=== PATIENT | female | born 1985 | race Caucasian/White ===

== ENCOUNTER 2019-09-17 06:47 | Emergency (ER) | payer BC, SELFPAY ==
[2019-09-17 06:51] VITALS: BP 109/44; PULSE 125; RESP 18; TEMP 37.1; O2SAT 91; BMI 44.9
--- NOTE | 2019-09-17 06:58 | XR_ITS ---
WS: [id number] Portable AP upright chest, 09/17/2019 Clinical Data: cough/congestion Comparison: PA and lateral chest, 08/07/2018. Findings: No nodules, masses or effusions are seen. The heart is normal. The pulmonary vascularity is not increased. No pneumonia or pneumothorax is seen. XR/XR chest 1V portable [id number] Impression: Negative chest.
--- NOTE | 2019-09-17 07:02 | W.ED.GENADLT ---
HPI - General Adult General: Chief complaint: General Medical Stated complaint: CONGESTION Time Seen by Provider: 09/17/19 06:54 Source: patient Mode of arrival: ambulatory Limitations: no limitations History of Present Illness: HPI narrative: Patient is a 33-year-old female who presents to ED today with complaints of fever of 101, chills, body aches, cough, pain in her chest with coughing, and generalized malaise that began last night; she states several members of her family have been sick with a stomach flu ; she denies abdominal pain, nausea, vomiting, or diarrhea Onset (ago): hour(s) Pain Consistency: constant Relieving factors: none Exacerbating factors: none Associated symptoms: Reports chest pain (with coughing) and malaise; Deny dyspnea, headache(s), nausea, rash, palpitations, syncope or vomiting Review of Systems Const: Reports: fever, chills, body aches, fatigue and malaise Eyes: Denies: change in vision or blurry vision ENMT: Denies: enlarged tonsils or painful swallowing Card: Reports: chest pain (with coughing); Denies: palpitations, irregular heart rhythm, lightheadedness, syncope, pre-syncope or shortness of breath on exertion Resp: Denies: shortness of breath, productive cough or pain on inspiration GI: Denies: abdominal pain, nausea, vomiting, heartburn/indigestion or diarrhea : Denies: difficulty urinating, painful urination, urinary frequency or urinary urgency Musc: Denies: neck pain, back pain or joint pain Skin/Breast: Denies: rash Neuro: Denies: headache PFSH ED PFSH: Statuses (acute, chronic, etc) shown below reflect problem list status as previously entered and may not be historically accurate Social History Smoking and tobacco status: never smoked Female Reproductive History: Date of last menstrual period: 09/16/19 Physical Exam Const: COMMON NORMALS: no apparent distress, oriented x3, no limitations, alert and well nourished NUTRITIONAL APPEARANCE: obese HENMT: COMMON NORMALS: normocephalic, head/scalp atraumatic, EAC's normal and TM's normal bilaterally HEAD & SCALP: normocephalic and atraumatic FACE & SINUS: normal facial exam EXTERNAL AUDITORY CANAL: EAC's normal TYMPANIC MEMBRANE: TM's normal bilaterally THROAT: posterior oropharynx normal, tonsils normal and uvula midline Eye: COMMON NORMALS: PERRL and EOMs intact bilaterally PUPIL: Yes PERRL Neck/C-Spine: COMMON NORMALS: full ROM, no lymphadenopathy, supple and no meningeal signs Chest: COMMONS NORMALS: inspection of chest normal Resp: COMMON NORMALS: normal respiratory effort and clear to auscultation bilaterally AUSCULTATION: clear to auscultation bilaterally Cardio: COMMON NORMALS: regular rate and regular rhythm RATE: regular rate RHYTHM: regular rhythm GI: COMMON NORMALS: normal to inspection, nondistended, normoactive bowel sounds, soft to palpation, non-tender, no hepatosplenomegaly and no masses PALPATION: Yes soft and Yes no hepatosplenomegaly : COMMON NORMALS: Yes no CVA tenderness BLADDER/KIDNEY EXAM: Yes no CVA tenderness Back/Pelvis: COMMON NORMALS: no CVA tenderness and thoracic and lumbar spine normal to inspection Extremity: COMMON NORMALS: normal to inspection Neuro: COMMON NORMALS: oriented x3 SENSORIUM/ORIENTATION: Yes alert MENINGEAL SIGNS: Yes no meningeal signs Skin: COMMON NORMALS: no rashes or lesions noted GENERAL SKIN EXAM: no rashes or lesions noted Course Vital Signs: Vital signs: Vital Signs Temperature 98.6 F 09/17/19 08:24 Pulse Rate 108 H 09/17/19 08:24 Respiratory Rate 18 09/17/19 08:24 Blood Pressure 135/80 09/17/19 08:24 Pulse Oximetry 98 09/17/19 08:24 MDM - General Adult Lab Data: Labs: Lab Results 09/17/19 Range/Units 07:03 Influenza Type A A g Negative (Negative) POC Influenza B Ag Positive H (Negative) Imaging Data^: CXR: My impression: [address] [address] XRay Report Signed Patient: Nandini Brown Unit #: [id number] : 1985 Age/Sex: 33 / F ADM Date: 09/17/19 Loc: ER Room/Bed: Attending Dr: Ordering Provider/Ordering MD: Jocelyn Bonner Date of Service: 09/17/19 Procedure(s): XR chest 1V portable [id number] Accession Number(s): [id number] Report Number: [id number] WS: [id number] Portable AP upright chest, 09/17/2019 Clinical Data: cough/congestion Comparison: PA and lateral chest, 08/07/2018. Findings: No nodules, masses or effusions are seen. The heart is normal. The pulmonary vascularity is not increased. No pneumonia or pneumothorax is seen. XR/XR chest 1V portable [id number] Impression: Negative chest. Dictated By: Bailee Hicks MD Signed By: Bailee Hicks MD Signed Date/Time: 09/17/19823 DD/ 2 Discharge Plan Discharge Patient Disposition: Home, Self-Care Clinical Impression: Influenza Condition: Stable Prescriptions: New Tamiflu 75 mg capsule 75 mg PO BID 5 Days Qty: 10 RF: 0 Discharge Orders: Discharge Order (Routine); Ordered 09/17/19 Ordered By: Jocelyn Bonner Referrals: Belkis Menjivar FNP [Primary Care Provider] - Discharge Diet: Usual diet Discharge Activity: Resume usual activity Patient Instructions: Influenza (ED) Stand Alone Forms: Work/School Release Discharge Date/Time: 09/17/19 08:26 Coding Level of Care Code ED Public Accountant for Chg Fwd Exam Problem Focused
[2019-09-17 07:05] VITALS: BP 93/69; PULSE 112; RESP 22; O2SAT 96
[2019-09-17] MEDS: sodium chloride 0.9% 1,000 ML 999 ML IV (07:25)
[2019-09-17 07:41] LABS: Influenza A by IFA Negative (Negative); Influenza B by IFA Positive (Negative)
[2019-09-17 08:24] VITALS: BP 135/80; PULSE 108; RESP 18; TEMP 37; O2SAT 98
== END 2019-09-17 08:26 | disposition home or self-care (01) ==
PROVIDERS: Emergency Provider Physician Assistant; Family Provider Nurse Practitioner; PCP Nurse Practitioner
DX: J11.1 Influenza due to unidentified influenza virus with other respiratory manifestations (principal)
CPT/HCPCS: 71045; 87804; 96360; 99282; 99284; J7030

== ENCOUNTER → 2020-02-24 11:15 | Outpatient (BNVA) | payer BC, SELFPAY | PROVIDERS: Family Provider Nurse Practitioner; PCP Nurse Practitioner; Visit Provider Family Medicine | DX: E11.9 Type 2 diabetes mellitus without complications (principal); E78.5 Hyperlipidemia, unspecified; L68.0 Hirsutism | CPT/HCPCS: 80053; 80061; 83036; 85025 ==

== ENCOUNTER → 2020-06-26 08:38 | Outpatient (BNVA) | payer BC, SELFPAY | PROVIDERS: Family Provider Nurse Practitioner; PCP Nurse Practitioner; Visit Provider Family Medicine | DX: E11.9 Type 2 diabetes mellitus without complications (principal); E78.5 Hyperlipidemia, unspecified; L68.0 Hirsutism; M54.42 Lumbago with sciatica, left side; Z01.419 Encounter for gynecological examination (general) (routine) without abnormal findings; F17.219 Nicotine dependence, cigarettes, with unspecified nicotine-induced disorders | CPT/HCPCS: 80053; 83036; 88175 ==

== ENCOUNTER 2020-07-12 14:58 | Emergency (ER) | payer BC, SELFPAY ==
[2020-07-12 15:17] VITALS: BP 123/85; PULSE 91; RESP 18; TEMP 36.3; O2SAT 96; BMI 45.8
--- NOTE | 2020-07-12 16:12 | W.ED.EYEPROB ---
Documented by User: MARGO Reynolds 07/13/20 07:12 HPI - Eye Problem General: Chief complaint: Eye Problems Stated complaint: spider bite L eye Time Seen by Provider: 07/12/20 16:07 Source: patient Mode of arrival: ambulatory Limitations: no limitations History of Present Illness: HPI Narrative: 34-year-old female patient presents to the emergency department with 3-day history of pain and redness/swelling to the left eye. States woke on Friday from sleep, left upper eyelid with swelling and redness. She reports visit to her primary care office on Friday, placed on Bactrim. She reports was told possible spider bite. She had follow-up with her java security architect today, Dr. Goodwin who advised there is nothing wrong with her eye but the infection was limited to the eyelid and to the face. Patient reports was advised to come to the emergency department if she developed worsening symptoms -she reports continues to take Bactrim, reports facial swelling and edema now down the left cheek advancing to the neck. She reports intense itching. States has not taken anything for itching or pain. She denies loss of vision, reports photophobia, Onset (ago): day(s) (3) Onset description: gradual Duration: constant and progressively worsening Location: left eye Eye Symptoms: decreased vision (Due to left eyelid edema) and photophobia Place: home Mechanism: other (Unknown) Severity: moderate If Pain, Quality: burning Associated symptoms: Reports no associated symptoms; Denies fever(s), headache(s), nausea or vomiting Treatments Prior to Arrival: other (Oral antibiotics) Review of Systems General: Reports: 10 or more systems reviewed and unremarkable except in HPI and below Const: Denies: fever(s), chills, fatigue, malaise or diaphoresis Eyes: Reports: change in vision (left eyelid edema); Denies: blurry vision or eye redness ENMT: Denies: throat pain, hoarseness, dental pain, disequilibrium, nasal discharge, nasal congestion or epistaxis Card: Denies: chest pain, palpitations, irregular heart rhythm, swelling of feet/ankles or dyspnea on exertion Resp: Denies: dyspnea, productive cough, non-productive cough, wheezing or chest congestion GI: Denies: abdominal pain, nausea or vomiting : Denies: difficulty voiding or dysuria Musc: Denies: back pain Skin/Breast: Denies: rash or pruritus Neuro: Denies: headache(s), weakness in extremities or behavioral changes Psych: Denies: anxiety or depression Anthony/Lymph: Denies: easy bruising PFSH ED PFSH: Medical History Dyslipidemia Female hirsutism Seasonal allergies Type 2 diabetes mellitus, without long-term current use of insulin Surgical History H/O tubal ligation History of cholecystectomy History of tympanostomy tube placement Family History Other CAD (coronary artery disease) Diabetes Hypertension Stroke Social History Smoking and tobacco status: current every day smoker cigarettes Packs smoked per day: 0.25 Female Reproductive History: Date of last menstrual period: 09/16/19 Physical Exam Const: COMMON NORMALS: no acute distress, patient oriented x3, healthy appearing, alert and well nourished GENERAL APPEARANCE: cooperative, comfortable, well kempt and well hydrated NUTRITIONAL APPEARANCE: obese ORIENTATION/CONSCIOUSNESS: Yes awake, Yes oriented to person, Yes oriented to place and Yes oriented to time HENMT: COMMON NORMALS: normocephalic, atraumatic, EAC's normal, TM's normal bilaterally, Normal external nose present and moist oral mucous membranes HEAD & SCALP: normocephalic and atraumatic FACE & SINUS: sinuses nontender, erythema on the left and edema on the left; no sinus tenderness, no ecchymosis, no Facial tenderness on exam of face and sinuses and no TMJ findings NOSE: Normal external nose present; mucous membranes&turbinates not abnormal and no Nasal discharge present EXTERNAL AUDITORY CANAL: EAC's normal TYMPANIC MEMBRANE: TM's normal bilaterally MOUTH: Normal oral and palatal mucosa present; no TMJ findings THROAT: posterior oropharynx normal Eye: COMMON NORMALS: Equal, round and reactive pupils present, EOMs intact bilaterally and conjunctivae normal (To visual inspection) ALIGNMENT: Yes alignment normal PERIORBITAL: periorbital findings abnormal positive left periorbital swelling, periorbital tenderness and periorbital erythema EYELID: eyelid abnormality (Erythema and edema) left upper eyelid and left lower eyelid CONJUNCTIVA: Yes conjunctivae normal (To visual inspection) SCLERA: sclerae normal (To visual inspection) PUPIL: Yes Equal, round and reactive pupils present, Yes pupil size - right Right pupil size (mm): 5 and Yes pupil size - left Left pupil size (mm): 5 Neck/C-Spine: COMMON NORMALS: full ROM and no lymphadenopathy GENERAL: Yes trachea midline, No lymphadenopathy, No tracheal deviation, No submandibular swelling and Yes other (Erythema to the left face with tracking to the left neck, lateral) CERVICAL SPINE: Yes cervical ROM normal Lymph: LYMPHATIC: no lymphadenopathy noted and No lymphadenopathy Chest: COMMONS NORMALS: normal inspection of the chest Resp: COMMON NORMALS: normal respiratory effort and clear to auscultation bilaterally AUSCULTATION: clear to auscultation bilaterally Cardio: COMMON NORMALS: regular rhythm, S1 normal heart sound present, S2 normal heart sound present and Peripheral pulses 2+ throughout RHYTHM: regular rhythm HEART SOUNDS: S1 normal heart sound present and S2 normal heart sound present PERIPHERAL PULSES: Peripheral pulses 2+ throughout GI: COMMON NORMALS: Soft to palpation and non-tender INSPECTION: Yes normal to inspection PALPATION: Yes Soft to palpation : COMMON NORMALS: Yes no CVA tenderness BLADDER/KIDNEY EXAM: Yes no CVA tenderness Back/Pelvis: COMMON NORMALS: no CVA tenderness and thoracic and lumbar spine normal to inspection Extremity: COMMON NORMALS: normal to inspection and capillary refill normal Neuro: COMMON NORMALS: patient oriented x3 and no focal motor deficits SENSORIUM/ORIENTATION: Yes alert, Yes oriented to person, Yes oriented to place and Yes oriented to time Psych: COMMON NORMALS: mental status grossly normal, Normal thought process present and cooperative APPEARANCE: Yes well kempt ACTIVITY/MOTOR BEHAVIOR: Yes appropriate eye contact THOUGHT PROCESS: Normal thought process present Skin: COMMON NORMALS: no rashes or lesions noted and turgor normal GENERAL SKIN EXAM: no rashes or lesions noted and turgor normal Course Vital Signs: Vital signs: Vital Signs Temperature 97.3 F L 07/12/20 15:17 Pulse Rate 85 07/12/20 19:51 Respiratory Rate 18 07/12/20 15:17 Blood Pressure 125/83 07/12/20 19:51 Pulse Oximetry 98 07/12/20 19:51 Discharge Plan Discharge Patient Disposition: Home Clinical Impression: Cellulitis of left eyelid Condition: Stable Prescriptions: New Augmentin 500-125 mg tablet 1 tab PO BID 7 Days Qty: 14 RF: 0 methylprednisolone 4 mg tablets,dose pack See Rx Instructions .ROUTE .COMPLEX Qty: 21 RF: 0 No Action atorvastatin 10 mg tablet 10 mg PO DAILY Qty: 90 RF: 0 spironolactone 25 mg tablet 25 mg PO BID Qty: 180 RF: 1 cyclobenzaprine 10 mg tablet 10 mg PO .po q hs Qty: 10 RF: 0 diclofenac sodium 50 mg tablet,delayed release (DR/EC) 50 mg PO BID Qty: 40 RF: 0 Januvia 100 mg tablet 100 mg PO DAILY Qty: 90 RF: 1 sulfamethoxazole-trimethoprim [Bactrim DS] 800-160 mg tablet 1 tab PO BID Qty: 20 RF: 0 Discharge Orders: Discharge Order (Routine); Ordered 07/12/20 Ordered By: Brendan Crowder Referrals: Zoila Fox DO [Primary Care Provider] - Discharge Diet: Regular Discharge Activity: Increase activity as tolerated Patient Instructions: Cellulitis (ED), Periorbital Cellulitis Activity Restrictions/Additional Instructions: Follow-up with medical provider as directed in 5 to 7 days for reevaluation. Take medications as prescribed. Continue taking previously prescribed Bactrim. Return to the ER or your medical provider if condition worsens. Please read and understand discharge instructions. If any questions, please ask. Sign Out Sign Out Data: Patient Sign Out occurred on 07/12/20 at 17:56. Patient's care was discussed, and care was transferred from MARGO Reynolds to KOMAL Inman. Sign Out Comment: Transfer of care due to change of shift - labs pending Last updated by Yolanda Pratt ARNP at 07/12/20 17:51 Coding Level of Care Code ED Access Services Librarian for Chg Fwd Exam Comprehensive Documented by User: KOMAL Inman 07/13/20 02:37 HPI - Eye Problem General: Chief complaint: Eye Problems Stated complaint: spider bite L eye Time Seen by Provider: 07/12/20 16:07 [facility] PFS: Medical History Dyslipidemia Female hirsutism Seasonal allergies Type 2 diabetes mellitus, without long-term current use of insulin Surgical History H/O tubal ligation History of cholecystectomy History of tympanostomy tube placement Family History Other CAD (coronary artery disease) Diabetes Hypertension Stroke Social History Smoking and tobacco status: current every day smoker cigarettes Packs smoked per day: 0.25 Course Vital Signs: Vital signs: Vital Signs Temperature 97.3 F L 07/12/20 15:17 Pulse Rate 85 07/12/20 19:51 Respiratory Rate 18 07/12/20 15:17 Blood Pressure 125/83 07/12/20 19:51 Pulse Oximetry 98 07/12/20 19:51 MDM - Eye Problem MDM Narrative: Medical decision making narrative: Patient is a 34-year-old female comes to the ED with pain, erythema and swelling of upper eyelid. Patient was seen by Dr. Goodwin her eye doctor before coming to ED and he evaluated her eyes and said there is nothing wrong with her eye infection appears to be limited to eyelid. CT of face showed no abscess and just indicated inflammatory soft tissue over the left orbit, Suggestive of cellulitis. Patient has been taking Bactrim for 3 days currently. She was discharged and told to continue taking Bactrim but I sent her with a prescription for Medrol Dosepak and Augmentin. Return to ED precautions given. Follow-up with PCP in 7 to 10 days. Patient understood agree with plan. Imaging Data^: Other CT: Attestation: I personally reviewed and interpreted this imaging study as follows: Radiologist's impression: [address] [address] [address] Scan Report Signed Patient: Nandini Brown Unit #: [id number] : 1985 Age/Sex: 34 / F ADM Date: 07/12/20 Loc: ER Room/Bed: Attending Dr: Ordering Provider/Ordering MD: Yolanda Pratt Date of Service: 07/12/20 Procedure(s): CT facial bones w con [id number] Accession Number(s): [id number] Report Number: [id number] WS: [id number] CT facial bones w con [id number] REASON FOR EXAM: left eye lid cellulitis with facial cellulitis IV CONTRAST ADMINISTERED: 95 mL of Omnipaque 300. TOTAL EXAM DLP: 855.[address] scans at [facility] use at least one of these dose optimization techniques: automated exposure control; mA and/or kV adjustment per patient size (includes targeted exams where dose is matched to clinical indication); or iterative reconstruction. FINDINGS: Facial bones are unremarkable. Intraorbital structures are normal. No significant paranasal sinus disease. Normal thyroid and salivary glands. There is a small lipoma involving the anterior portion of the left superficial mass effect or muscle anterior to the left parotid gland. There is thickening and increased density of the soft tissues anterior to the left orbit. No gas is identified and there is no significant enhancement. No radiopaque foreign body is noted. No focal fluid collection. This process extends only a short distance above and below the bony margins of the left orbit. No significant medial or lateral extension is noted. CT/CT facial bones w con [id number] IMPRESSION: Mild presumed inflammatory soft tissue changes confined to the anterior soft tissues overlying the left orbit. Incidental lipoma. Dictated By: Manjinder Santiago Jr, MD Signed By: Manjinder Santiago Jr, MD Signed Date/Time: 07/12/201737 DD/ 172 Discharge Plan Discharge Patient Disposition: Home Clinical Impression: Cellulitis of left eyelid Condition: Stable Prescriptions: New Augmentin 500-125 mg tablet 1 tab PO BID 7 Days Qty: 14 RF: 0 methylprednisolone 4 mg tablets,dose pack See Rx Instructions .ROUTE .COMPLEX Qty: 21 RF: 0 No Action atorvastatin 10 mg tablet 10 mg PO DAILY Qty: 90 RF: 0 spironolactone 25 mg tablet 25 mg PO BID Qty: 180 RF: 1 cyclobenzaprine 10 mg tablet 10 mg PO .po q hs Qty: 10 RF: 0 diclofenac sodium 50 mg tablet,delayed release (DR/EC) 50 mg PO BID Qty: 40 RF: 0 Januvia 100 mg tablet 100 mg PO DAILY Qty: 90 RF: 1 sulfamethoxazole-trimethoprim [Bactrim DS] 800-160 mg tablet 1 tab PO BID Qty: 20 RF: 0 Discharge Orders: Discharge Order (Routine); Ordered 07/12/20 Ordered By: Brendan Crowder Referrals: Zoila Fox DO [Primary Care Provider] - Discharge Diet: Regular Discharge Activity: Increase activity as tolerated Patient Instructions: Cellulitis (ED), Periorbital Cellulitis Activity Restrictions/Additional Instructions: Follow-up with medical provider as directed in 5 to 7 days for reevaluation. Take medications as prescribed. Continue taking previously prescribed Bactrim. Return to the ER or your medical provider if condition worsens. Please read and understand discharge instructions. If any questions, please ask. Sign Out Sign Out Data: Patient Sign Out occurred on 07/12/20 at 17:56. Patient's care was discussed, and care was transferred from MARGO Reynolds to KOMAL Inman. Sign Out Comment: Transfer of care due to change of shift - labs pending Last updated by Yolanda Pratt ARNP at 07/12/20 17:51 Coding Level of Care Code ED Access Services Librarian for Chg Fwd Exam Comprehensive
--- NOTE | 2020-07-12 16:14 | CT_ITS ---
WS: [id number] CT facial bones w con [id number] REASON FOR EXAM: left eye lid cellulitis with facial cellulitis IV CONTRAST ADMINISTERED: 95 mL of Omnipaque 300. TOTAL EXAM DLP: 855.[address] scans at [facility] use at least one of these dose optimization techniques: automat ed exposure control; mA and/or kV adjustment per patient size (includes targeted exams where dose is matched to clinical indication); or iterative reconstruction. FINDINGS: Facial bones are unremarkable. Intraorbital structures are normal. No significant paranasal sinus disease. Normal thyroid and salivary glands. There is a small lipoma involving the anterior portion of the left superficial mass effect or muscle anterior to the left parotid gland. There is thickening and increased density of the soft tissues anterior to the left orbit. No gas is i dentified and there is no significant enhancement. No radiopaque foreign body is noted. No focal flui d collection. This process extends only a short distance above and below the bony margins of the left orbit. No significant medial or lateral extension is noted. CT/CT facial bones w con [id number] IMPRESSION: Mild presumed inflammatory soft tissue changes confined to the anterior soft ti ssues overlying the left orbit. Incidental lipoma.
[2020-07-12] MEDS: dexamethasone 4 mg/mL INJ 10 MG IVP (19:50)
[2020-07-12] MEDS: HYDROcodone-acetaminophen 7.5-325 mg Tablet 2 TAB PO (19:50)
[2020-07-12] MEDS: amoxicillin-clav 500-125 mg Tablet 1 TAB PO ×2 (19:50)
[2020-07-12 19:51] VITALS: BP 125/83; PULSE 85; O2SAT 98
== END 2020-07-12 19:51 | disposition home or self-care (01) ==
PROVIDERS: Emergency Provider Physician Assistant; PCP Family Medicine
DX: H00.034 Abscess of left upper eyelid (principal); E78.5 Hyperlipidemia, unspecified; E11.9 Type 2 diabetes mellitus without complications; F17.210 Nicotine dependence, cigarettes, uncomplicated
CPT/HCPCS: 12345; 70487; 96374; 96375; 99282; 99283; J1100; Q9967

== ENCOUNTER 2020-07-30 23:40 | Emergency (ER) | payer BC, SELFPAY ==
[2020-07-30 23:44] VITALS: BP 139/101; PULSE 90; RESP 18; TEMP 35.6; O2SAT 99; BMI 45.8
--- NOTE | 2020-07-30 23:44 | XR_ITS ---
WS: [id number] XR knee RT 3V* [id number] REASON FOR EXAM: fall and knee popped FINDINGS: The joint spaces of the right knee are intact. No fracture or other focal bony abnormality. No soft tissue abnormality. XR/XR knee RT 3V* [id number] IMPRESSION: No acute abnormality.
--- NOTE | 2020-07-30 23:48 | W.ED.LOWEXIN ---
HPI - Extremity Injury (Lower) General: Chief Complaint: Extremity Injury, Lower Stated Complaint: fall/pop from right knee Time Seen by Provider: 07/30/20 23:44 History of Present Illness: HPI Narrative: Patient is a 34-year-old female comes to the ED with right knee injury. Injury occurred just prior to arrival. Patient says she slipped on the snow and twisted her right knee as she fell. Patient says she heard a pop. she now says her right knee has 10 out of 10 pain and the pain is located on the medial inferior aspect of knee. Patient says she has been able to ambulate since the fall but says it is painful and she has to go very slowly. Denies any head trauma or loss of consciousness. Review of Systems Const: Denies: fever(s), chills or fatigue Eyes: Denies: change in vision or eye discomfort ENMT: Denies: throat pain, odynophagia, nasal discharge or nasal congestion Card: Denies: chest pain, palpitations, edema, swelling of feet/ankles, dyspnea on exertion or orthopnea Resp: Denies: dyspnea, productive cough or non-productive cough GI: Denies: abdominal pain, nausea, vomiting, diarrhea, constipation or hematochezia : Denies: flank pain, dysuria or hematuria Musc: Reports: extremity pain (right knee) and joint pain (right knee); Denies: neck pain, back pain or extremity swelling Skin/Breast: Denies: rash or new lesions Neuro: Denies: headache(s), numbness in extremities or weakness in extremities [facility] ED PFSH: Medical History Dyslipidemia Female hirsutism Seasonal allergies Type 2 diabetes mellitus, without long-term current use of insulin Surgical History H/O tubal ligation History of cholecystectomy History of tympanostomy tube placement Family History Other CAD (coronary artery disease) Diabetes Hypertension Stroke Social History Smoking and tobacco status: current every day smoker cigarettes Packs smoked per day: 0.25 Female Reproductive History: Date of last menstrual period: 09/16/19 Physical Exam Const: COMMON NORMALS: patient oriented x3 and alert GENERAL APPEARANCE: cooperative and comfortable NUTRITIONAL APPEARANCE: overweight HENMT: COMMON NORMALS: normocephalic HEAD & SCALP: normocephalic MOUTH: Normal oral and palatal mucosa present THROAT: posterior oropharynx normal and uvula midline Eye: COMMON NORMALS: Equal, round and reactive pupils present PUPIL: Yes Equal, round and reactive pupils present Neck/C-Spine: COMMON NORMALS: supple GENERAL: Yes normal visual inspection Resp: COMMON NORMALS: normal respiratory effort, No retractions, No use of accessory muscles and clear to auscultation bilaterally AUSCULTATION: clear to auscultation bilaterally Cardio: COMMON NORMALS: regular rate, regular rhythm, S1 normal heart sound present, S2 normal heart sound present, No gallops present (Cardio), No clicks present (Cardio), No murmurs present (Cardio) and Peripheral pulses 2+ throughout RATE: regular rate RHYTHM: regular rhythm HEART SOUNDS: S1 normal heart sound present and S2 normal heart sound present PERIPHERAL PULSES: Peripheral pulses 2+ throughout GI: COMMON NORMALS: Normal to inspection, nondistended, normoactive bowel sounds present, Soft to palpation, non-tender and no masses PALPATION: Yes Soft to palpation : COMMON NORMALS: Yes no CVA tenderness BLADDER/KIDNEY EXAM: Yes no CVA tenderness Back/Pelvis: COMMON NORMALS: no CVA tenderness Extremity: GENERAL: Yes normal exam except as noted RIGHT LOWER EXTREMITY: Yes knee joint Right knee: Yes inspection (No visible edema or ecchymosis present.), Yes palpation (Tender on the anterior, medial and inferior aspect of knee joint.), Yes ROM (Limited due to pain.) and Yes neurovascular exam (Intact with pedal pulse 2+.) Neuro: COMMON NORMALS: patient oriented x3 and moves all extremities SENSORIUM/ORIENTATION: Yes alert Skin: GENERAL SKIN EXAM: dry skin Course Vital Signs: Vital signs: Vital Signs Temperature 96.0 F L 07/30/20 23:44 Pulse Rate 80 07/31/20 00:40 Respiratory Rate 18 07/31/20 00:40 Blood Pressure 155/96 07/31/20 00:40 Pulse Oximetry 96 07/31/20 00:40 MDM - Extremity Injury (Lower) MDM Narrative: Medical decision making narrative: Patient is a 34-year-old female comes to the ED with right knee pain after having a fall. Patient says when she fell she twisted her right knee and heard a pop. Exam shows some tenderness to palpation the medial aspect of the knee and neurovascular intact. Range of motion limited due to pain. X-ray of right knee showed no acute fractures or findings. Patient was put in a knee immobilizer and given crutches to help with ambulation. Patient told to rest, ice and elevate and follow-up with PCP in 5 to 7 days to reevaluate knee pain. Return to ED precautions given. Patient understood and agreed with plan. Imaging Data^: Xray Ortho: Attestation: I personally reviewed and interpreted this imaging study as follows: My impression: Right knee x-ray shows no acute findings or fractures. Discharge Plan Discharge Patient Disposition: Home Clinical Impression: Right knee injury Qualifiers: Encounter type: initial encounter Qualified Code(s): S89.91XA - Unspecified injury of right lower leg, initial encounter Condition: Stable Prescriptions: No Action atorvastatin 10 mg tablet 10 mg PO DAILY Qty: 90 RF: 0 spironolactone 25 mg tablet 25 mg PO BID Qty: 180 RF: 1 cyclobenzaprine 10 mg tablet 10 mg PO .po q hs Qty: 10 RF: 0 diclofenac sodium 50 mg tablet,delayed release (DR/EC) 50 mg PO BID Qty: 40 RF: 0 Januvia 100 mg tablet 100 mg PO DAILY Qty: 90 RF: 1 sulfamethoxazole-trimethoprim [Bactrim DS] 800-160 mg tablet 1 tab PO BID Qty: 20 RF: 0 methylprednisolone 4 mg tablets,dose pack See Rx Instructions .ROUTE .COMPLEX Qty: 21 RF: 0 Discharge Orders: Discharge ED (Routine); Ordered 07/31/20 Ordered By: Brendan Crowder Referrals: Zoila Fox DO [Primary Care Provider] - Discharge Diet: Regular Discharge Activity: Use walker/crutches as instructed Patient Instructions: Knee Sprain (ED), Knee Pain (ED), Knee Immobilizer (ED) Activity Restrictions/Additional Instructions: Follow-up with medical provider as directed in 5 to 7 days for reevaluation. Rest, ice and elevate right leg. Take [id number] ibuprofen or Tylenol for pain. Wear knee immobilizer and use crutches for the next several days to allow for knee to heal. Return to the ER or your medical provider if condition worsens. Please read and understand discharge instructions. If any questions, please ask. Coding Level of Care Code ED Wrist Closer for Chg Fwd Exam Comprehensive
[2020-07-31] MEDS: ketorolac 60 mg/2 mL INJ IM (00:33)
[2020-07-31] MEDS: HYDROcodone-acetaminophen 5-325 mg Tablet 2 TAB PO (00:34)
[2020-07-31 00:40] VITALS: BP 155/96; PULSE 80; RESP 18; O2SAT 96
== END 2020-07-31 00:42 | disposition home or self-care (01) ==
PROVIDERS: Emergency Provider Physician Assistant; PCP Family Medicine
DX: S89.91XA Unspecified injury of right lower leg, initial encounter (principal); E78.5 Hyperlipidemia, unspecified; E11.9 Type 2 diabetes mellitus without complications; F17.210 Nicotine dependence, cigarettes, uncomplicated; W00.0XXA Fall on same level due to ice and snow, initial encounter
CPT/HCPCS: 12345; 29530; 73562; 96372; 99281; 99283; E0114; J1885

== ENCOUNTER 2021-02-11 13:21 | Emergency (ER) | payer OTHER, SELFPAY ==
[2021-02-11 14:33] VITALS: BP 127/87; PULSE 72; RESP 16; TEMP 36.8; O2SAT 97; BMI 46.0
[2021-02-11 14:56] VITALS: BP 119/75; PULSE 72; RESP 16; O2SAT 98
--- NOTE | 2021-02-11 15:04 | CTR_ITS ---
PROCEDURE INFORMATION: Exam: CT Abdomen And Pelvis With Contrast Exam date and time: 02/11/2021 3:04 PM Age: 35 years old Clinical indication: Abdominal pain; Right lower quadrant (rlq); Prior surgery; Surgery date: 6+ months; Surgery type: Gb, tubal; Patient HX: C/O intermittent R flank/rlq pain x 1 month TECHNIQUE: Imaging protocol: Computed tomography of the abdomen and pelvis with contrast. Radiation optimization: All CT scans at this facility use at least one of these dose optimization techniques: automated exposure control; mA and/or kV adjustment per patient size (includes targeted exams where dose is matched to clinical indication); or iterative reconstruction. Contrast material: OMNI 300; Contrast volume: 95 ml; Contrast route: INTRAVENOUS (IV); COMPARISON: US gall bladder [id number] 05/25/2014 9:05 PM RADIATION DOSE METRICS: Total DLP (mGy-cm): 1733.63 FINDINGS: Lungs: There is minimal subsegmental atelectasis at the lung bases. Liver: There is no focal abnormality within the liver. There is minimal intrahepatic biliary tract dilatation within the liver. Common bile duct measures 9 mm. Gallbladder and bile ducts: There has been a cholecystectomy. Pancreas: The pancreas is normal. Spleen: The spleen is normal. Adrenal glands: The adrenal glands are normal. Kidneys and ureters: The left kidney is normal. There is mild delay of the right nephrogram. There is mild right hydronephrosis and hydroureter. There is a 2 mm size stone in the distal right ureter approximately 4 cm above the right ureterovesical junction. Stone measures approximately 300 Hounsfield units maximum and is not seen on the motel front desk clerk image. Stomach and bowel: There is no evidence of colitis/diverticulitis. There is no evidence of intestinal obstruction. Appendix: A normal appendix is identified. Intraperitoneal space: Unremarkable. No free air. No significant fluid collection. Vasculature: Unremarkable. No abdominal aortic aneurysm. Lymph nodes: There is no evidence of lymphadenopathy. Urinary bladder: Unremarkable as visualized. Reproductive: There are what appear to be bilateral tubal ligation clips. There is a 4.6 cm sized right adnexal cyst. Bones/joints: There is degenerative change in the lower thoracic spine. Soft tissues: Unremarkable. CT/CT abdomen pelvis w con* [id number] IMPRESSION: 1. Small obstructing stone in the distal right ureter. 2. Right adnexal cyst. Radiation Dose CTDIVOL = (mGy): DLP = 1733.63 (mGy-cm)
[2021-02-11 15:37] VITALS: BP 135/83; PULSE 67; RESP 18; O2SAT 98
[2021-02-11 15:41] VITALS: RESP 18
[2021-02-11] MEDS: morphine 4 mg/mL SDV 1 mL IVP (15:41)
[2021-02-11] MEDS: ondansetron 2 mg/ML SDV 2 mL 4 MG IVP (15:43)
[2021-02-11 15:58] LABS: Basophils # 0.1 10^3/uL (0.0-0.1); Basophils % 0.4 %; Eosinophils % 0.1 %; Hematocrit 48.1 % (37.0-47.0); Hemoglobin 15.5 g/dL (11.5-15.3); Lymphocytes # 1.8 10^3/uL (0.8-4.8); Lymphocytes % 10.6 %; Mean Corpuscular HGB Conc 32.2 g/dL (30.0-36.0); Mean Corpuscular Hemoglobin 29.2 pg (28.0-34.0); Mean Corpuscular Volume 90.8 fL (81-99); Mean Platelet Volume 9.4 fL (7.4-10.4); Monocytes # 0.5 10^3/uL (0.2-0.9); Monocytes % 3.2 %; Neutrophils # 14.33 10^3/uL (1.8-7.7); Neutrophils % 85.3 %; Nucleated Red Blood Cells % 0 %; Platelet Count 413 10^3/cmm (130-400); Red Cell Distribution Width 13.7 % (12.1-15.1); White Blood Count 16.8 10^3/uL (4.0-10.0)
[2021-02-11 16:24] LABS: Alanine Aminotransferase 30 U/L (0-33); Albumin Level 4.1 g/dL (3.5-5.2); Alkaline Phosphatase 144 IU/L (35-105); Anion Gap 15.1 (5-19); Aspartate Amino Transferase 19 U/L (0-32); Blood Urea Nitrogen 11 mg/dL (6-20); C Reactive Protein 5.8 mg/L (0.0-4.9); Calcium 9.2 mg/dL (8.5-10.5); Carbon Dioxide 26 mmol/L (22-29); Chloride 102 mmol/L (98-107); Globulin 3.6 g/dL (1.3-4.6); Glomerular Filtration Rate 81.2 mL/min (90-130); Glucose 111 mg/dL (65-115); Lipase 24 U/L (13-60); Osmolality Calculated 288 mOsm/kg (285-295); Potassium 4.1 mmol/L (3.5-5.1); Sodium 139 mmol/L (136-145); Total Bilirubin 0.2 mg/dL (0.15-1.2); Total Protein 7.7 g/dL (6.6-8.7)
[2021-02-11 16:28] LABS: HCG Qualitative Urine. Negative (Negative)
[2021-02-11] MEDS: iohexol 300 mg/mL 100 mL Btl IV (16:36)
[2021-02-11 16:38] LABS: Bilirubin Urine Neg (Negative); Blood Urine 3+ (Negative); Glucose Urine UA Norm (Normal); Ketones Urine 1+ (Negative); Nitrate Urine Negative (Negative); Protein Urine Neg (Negative); Specific Gravity, Urine 1.015 (1.005-1.030); Urine Appearance Hazy (CLEAR); Urine Color Dark Yellow (Yellow); Urobilinogen Urine Norm (Negative); pH Urine 5 (5-7)
[2021-02-11 16:39] LABS: Add Urine Microscopic? YES; Leukocyte Esterase Urine Trace (Negative); RBC Urine >100 /hpf (0-2)
[2021-02-11 16:40] LABS: Bacteria Urine 2+ /hpf; Mucus Urine 1+ /hpf
[2021-02-11 16:41] LABS: Add Urine Culture? Yes
--- NOTE | 2021-02-11 16:51 | W.ED.FEMALGU ---
HPI - Female Genitourinary General: Chief complaint: Urogenital-Female Stated complaint: R side pain Time Seen by Provider: 02/11/21 14:38 Source: patient Mode of arrival: ambulatory Limitations: no limitations History of Present Illness: HPI Narrative: 35-year-old female patient presents to the emergency department with right lower quadrant pain that has been intermittent for about a month but present today and not getting any better. He is more severe today than it usually has been. She has associated nausea and episodes of vomiting. She also admits to diarrhea. No fever. Onset (ago): hour(s) (4) Location of symptoms: RLQ Severity: severe Female Urogenital Radiation: R Flank Quality of pain: sharp Consistency: constant Vaginal bleeding: none Exacerbating factors: none Relieving factors: none Associated symptoms: Reports abdominal pain and nausea; Deny short of breath, fevers/chills, headache(s), rash, seizures, syncope, vaginal discharge or weakness Treatment prior to arrival: none Date of Last Menstrual Period: 09/16/19 Review of Systems General: Reports: 10 or more systems reviewed and unremarkable except in HPI and below Card: Denies: syncope GI: Reports: abdominal pain and nausea : Denies: vaginal discharge Neuro: Denies: headache(s) [facility] ED PFSH: Medical History (Updated 02/11/21 @ 22:47 by Hussein Melendrez MD, [facility] [place]) Dyslipidemia Female hirsutism Seasonal allergies Type 2 diabetes mellitus, without long-term current use of insulin Surgical History H/O tubal ligation History of cholecystectomy History of tympanostomy tube placement Family History Other CAD (coronary artery disease) Diabetes Hypertension Stroke Social History Smoking and tobacco status: current every day smoker cigarettes Packs smoked per day: 0.25 Female Reproductive History: Date of last menstrual period: 09/16/19 Physical Exam Const: COMMON NORMALS: no acute distress, average body habitus, patient oriented x3, no limitations, healthy appearing, alert and well nourished HENMT: COMMON NORMALS: normocephalic, atraumatic and moist oral mucous membranes HEAD & SCALP: normocephalic and atraumatic Neck/C-Spine: COMMON NORMALS: no meningeal signs and no JVD Resp: COMMON NORMALS: normal respiratory effort, No retractions, No use of accessory muscles, clear to auscultation bilaterally and percussion normal AUSCULTATION: clear to auscultation bilaterally PERCUSSION: percussion normal Cardio: COMMON NORMALS: no JVD, regular rate, regular rhythm, S1 normal heart sound present, S2 normal heart sound present, No gallops present (Cardio), No clicks present (Cardio), No murmurs present (Cardio), No rub (Cardio) and Peripheral pulses 2+ throughout RATE: regular rate RHYTHM: regular rhythm HEART SOUNDS: S1 normal heart sound present and S2 normal heart sound present PERIPHERAL PULSES: Peripheral pulses 2+ throughout GI: COMMON NORMALS: Normal to inspection, nondistended, normoactive bowel sounds present, Soft to palpation, No hepatosplenomegaly present, no masses and no bruits PALPATION: Yes Soft to palpation, Yes Tenderness to palpation present (GI) Details: RLQ, No Guarding due to palpation present (GI), No Rigid due to palpation, Yes No hepatosplenomegaly present and No Rebound tenderness present Extremity: COMMON NORMALS: normal to inspection, full ROM, capillary refill normal, no calf tenderness and no pedal edema Neuro: COMMON NORMALS: patient oriented x3 SENSORIUM/ORIENTATION: Yes alert MENINGEAL SIGNS: Yes no meningeal signs Skin: COMMON NORMALS: no rashes or lesions noted, no wounds, turgor normal, no jaundice, no petechiae and no mottling GENERAL SKIN EXAM: no rashes or lesions noted and turgor normal Course Reevaluation(s): Reevaluation #1: Discussed her lab and imaging findings with her. Discussed that she has renal calculus in her right ureter and some UTI. Since she is nonfebrile, not having persistent vomiting, and her pain was controlled with a single dose of morphine we will discharge her home on oral antibiotics, pain medication, and tamsulosin. She will however follow-up with the urologist and a referral was made to have her see the urologist for further evaluation and management. She was discharged home with a urine strainer. Time: 17:47 Vital Signs: Vital signs: Vital Signs Temperature 98.2 F 02/11/21 14:33 Pulse Rate 74 02/11/21 19:30 Respiratory Rate 16 02/11/21 19:30 Blood Pressure 117/82 02/11/21 19:30 Pulse Oximetry 98 02/11/21 19:30 MDM - Female MDM Narrative: Medical decision making narrative: 35-year-old female patient who presents to the emergency department with right flank/right lower quadrant pain. Evaluation in the emergency department shows that she has a 2 mm calculus in her right distal ureter with some hydronephrosis on that side. UA shows trace leukocyte esterase and she will be treated with antibiotics for UTI. She will follow-up with the urologist. Pain was well controlled before discharge from the ED. Medical Records: Attestation: I reviewed the patient's medical records. Lab Data: Attestation: I reviewed the patient's lab results. Labs: Lab Results 02/11/21 02/11/21 02/11/21 Range/Units 11:50 11:50 16:00 WBC 16.8 H (4.0-10.0) 10^3/ uL RBC 5.30 (4.1-5.3) 10^6/u L Hgb 15.5 H (11.5-15.3) g/dL Hct 48.1 H (37.0-47.0) % MCV 90.8 (81-99) fL MCH 29.2 (28.0-34.0) pg MCHC 32.2 (30.0-36.0) g/dL RDW 13.7 (12.1-15.1) % Plt Count 413 H (130-400) 10^3/c mm MPV 9.4 (7.4-10.4) fL Neut % (Auto) 85.3 % Lymph % (Auto) 10.6 % Towns % (Auto) 3.2 % Eos % (Auto) 0.1 % Baso % (Auto) 0.4 % Neut # (Auto) 14.33 H (1.8-7.7) 10^3/u L Lymph # (Auto) 1.8 (0.8-4.8) 10^3/u L Towns # (Auto) 0.5 (0.2-0.9) 10^3/u L Eos # (Auto) 0.0 (0.0-0.8) 10^3/u L Baso # (Auto) 0.1 (0.0-0.1) 10^3/u L Nucleated RBC % (a uto) 0 % Nucleated RBCs # 0.0 /100WBC Sodium 139 (136-145) mmol/L Potassium 4.1 (3.5-5.1) mmol/L Chloride 102 (98-107) mmol/L Carbon Dioxide 26 (22-29) mmol/L Anion Gap 15.1 (5-19) BUN 11 (6-20) mg/dL Creatinine 0.8 (0.5-0.9) mg/dL GFR Calculation 81.2 L (90-130) mL/min Glucose 111 (65-115) mg/dL Calculated Osmolal ity 288 (285-295) mOsm/k g Calcium 9.2 (8.5-10.5) mg/dL Total Bilirubin 0.2 (0.15-1.2) mg/dL AST 19 (0-32) U/L ALT 30 (0-33) U/L Alkaline Phosphata se 144 H (35-105) IU/L C-Reactive Protein 5.8 H (0.0-4.9) mg/L Total Protein 7.7 (6.6-8.7) g/dL Albumin 4.1 (3.5-5.2) g/dL Globulin 3.6 (1.3-4.6) g/dL Lipase 24 (13-60) U/L HCG, Qual Negative (Negative) Urine Color (Yellow) Urine Appearance (CLEAR) Urine pH (5-7) Ur Specific Gravit y (1.005-1.030) Urine Protein (Negative) Urine Glucose (UA) (Normal) Urine Ketones (Negative) Urine Blood (Negative) Urine Nitrate (Negative) Urine Bilirubin (Negative) Urine Urobilinogen (Negative) mg/dL Ur Leukocyte Darlene ase (Negative) Urine RBC (0-2) /hpf Urine WBC (0-5) /hpf Ur Squamous Epith Cells (0-5) /hpf Amorphous Sediment Urine Bacteria (NONE) /hpf Urine Mucus /hpf 02/11/ Range/Units 16:00 WBC (4.0-10.0) 10^3/ uL RBC (4.1-5.3) 10^6/u L Hgb (11.5-15.3) g/dL Hct (37.0-47.0) % MCV (81-99) fL MCH (28.0-34.0) pg MCHC (30.0-36.0) g/dL RDW (12.1-15.1) % Plt Count (130-400) 10^3/c mm MPV (7.4-10.4) fL Neut % (Auto) % Lymph % (Auto) % Towns % (Auto) % Eos % (Auto) % Baso % (Auto) % Neut # (Auto) (1.8-7.7) 10^3/u L Lymph # (Auto) (0.8-4.8) 10^3/u L Towns # (Auto) (0.2-0.9) 10^3/u L Eos # (Auto) (0.0-0.8) 10^3/u L Baso # (Auto) (0.0-0.1) 10^3/u L Nucleated RBC % (a uto) % Nucleated RBCs # /100WBC Sodium (136-145) mmol/L Potassium (3.5-5.1) mmol/L Chloride (98-107) mmol/L Carbon Dioxide (22-29) mmol/L Anion Gap (5-19) BUN (6-20) mg/dL Creatinine (0.5-0.9) mg/dL GFR Calculation (90-130) mL/min Glucose (65-115) mg/dL Calculated Osmolal ity (285-295) mOsm/k g Calcium (8.5-10.5) mg/dL Total Bilirubin (0.15-1.2) mg/dL AST (0-32) U/L ALT (0-33) U/L Alkaline Phosphata se (35-105) IU/L C-Reactive Protein (0.0-4.9) mg/L Total Protein (6.6-8.7) g/dL Albumin (3.5-5.2) g/dL Globulin (1.3-4.6) g/dL Lipase (13-60) U/L HCG, Qual (Negative) Urine Color Dark yellow (Yellow) Urine Appearance Hazy A (CLEAR) Urine pH 5 (5-7) Ur Specific Gravit y 1.015 (1.005-1.030) Urine Protein Neg (Negative) Urine Glucose (UA) Norm (Normal) Urine Ketones 1+ H (Negative) Urine Blood 3+ H (Negative) Urine Nitrate Negative (Negative) Urine Bilirubin Neg (Negative) Urine Urobilinogen Norm (Negative) mg/dL Ur Leukocyte Darlene ase Trace H (Negative) Urine RBC >100 H (0-2) /hpf Urine WBC 5-10 H (0-5) /hpf Ur Squamous Epith Cells 5-10 H (0-5) /hpf Amorphous Sediment Not Reportable Urine Bacteria 2+ H (NONE) /hpf Urine Mucus 1+ /hpf Imaging Data: CT Abd/Pel: Attestation: I personally reviewed and interpreted this imaging study as follows: Radiologist's impression: [employer] [id number] Scan ReportSigned Patient: Adolfo Brown #: [id number]: [id number]#:[id number]/Sex: 35 / FADM Date: 02/11/21Loc: ERRoom/Bed:Attending Dr: Ordering Provider/Ordering MD: Hussein Melendrez MD, [facility] [place] Date of Service: 02/11/21 Procedure(s): CT abdomen pelvis w con* [id number] Accession Number(s): [id number] Report Number: [id number] PROCEDURE INFORMATION: Exam: CT Abdomen And Pelvis With Contrast Exam date and time: 02/11/2021 3:04 PM Age: 35 years old Clinical indication: Abdominal pain; Right lower quadrant (rlq); Prior surgery; Surgery date: 6+ months; Surgery type: Gb, tubal; Patient HX: C/O intermittent R flank/rlq pain x 1 month TECHNIQUE: Imaging protocol: Computed tomography of the abdomen and pelvis with contrast. Radiation optimization: All CT scans at this facility use at least one of these dose optimization techniques: automated exposure control; mA and/or kV adjustment per patient size (includes targeted exams where dose is matched to clinical indication); or iterative reconstruction. Contrast material: OMNI 300; Contrast volume: 95 ml; Contrast route: INTRAVENOUS (IV); COMPARISON: US gall bladder [id number] 05/25/2014 9:05 PM RADIATION DOSE METRICS: Total DLP (mGy-cm): 1733.63 FINDINGS: Lungs: There is minimal subsegmental atelectasis at the lung bases. Liver: There is no focal abnormality within the liver. There is minimal intrahepatic biliary tract dilatation within the liver. Common bile duct measures 9 mm. Gallbladder and bile ducts: There has been a cholecystectomy. Pancreas: The pancreas is normal. Spleen: The spleen is normal. Adrenal glands: The adrenal glands are normal. Kidneys and ureters: The left kidney is normal. There is mild delay of the right nephrogram. There is mild right hydronephrosis and hydroureter. There is a 2 mm size stone in the distal right ureter approximately 4 cm above the right ureterovesical junction. Stone measures approximately 300 Hounsfield units maximum and is not seen on the supervisor looping image. Stomach and bowel: There is no evidence of colitis/diverticulitis. There is no evidence of intestinal obstruction. Appendix: A normal appendix is identified. Intraperitoneal space: Unremarkable. No free air. No significant fluid collection. Vasculature: Unremarkable. No abdominal aortic aneurysm. Lymph nodes: There is no evidence of lymphadenopathy. Urinary bladder: Unremarkable as visualized. Reproductive: There are what appear to be bilateral tubal ligation clips. There is a 4.6 cm sized right adnexal cyst. Bones/joints: There is degenerative change in the lower thoracic spine. Soft tissues: Unremarkable. CT/CT abdomen pelvis w con* [id number] IMPRESSION: 1. Small obstructing stone in the distal right ureter. 2. Right adnexal cyst. Radiation Dose CTDIVOL = (mGy): DLP = 1733.63 (mGy-cm) Dictated By:Madi Hunter By:Madi Hunter Date/Time:02/11/211726DD/ 24 Discharge Plan Discharge Patient Disposition: Home Clinical Impression: Right distal ureteral calculus, Hydronephrosis, right, Hydroureter, right, Adnexal cyst UTI (urinary tract infection) Qualifiers: Urinary tract infection type: acute cystitis Hematuria presence: with hematuria Qualified Code(s): N30.01 - Acute cystitis with hematuria Condition: Stable Prescriptions: New hydrocodone-acetaminophen 5-325 mg tablet 1 tab PO Q8H PRN (Reason: kidney stone) Qty: 21 RF: 0 ciprofloxacin HCl 500 mg tablet 500 mg PO BID Qty: 14 RF: 0 Flomax 0.4 mg capsule 0.4 mg PO DAILY Qty: 30 RF: 0 Continued spironolactone 25 mg tablet 25 mg PO BID Qty: 180 RF: 1 Januvia 100 mg tablet 100 mg PO DAILY Qty: 90 RF: 1 fexofenadine [Lakisha Allergy] 180 mg tablet 180 mg PO DAILY RF: 0 meloxicam [Mobic] 15 mg tablet 15 mg PO DAILY Qty: 30 RF: 0 atorvastatin 10 mg tablet 10 mg PO DAILY Qty: 30 RF: 0 Discharge Orders: Discharge ED (Routine); Ordered 02/11/21 Ordered By: Hussein Melendrez Referrals: Zoila Fox DO [Primary Care Provider] - 1-3 days Discharge Diet: Usual diet Discharge Activity: Resume usual activity Patient Instructions: Kidney Stones (ED), How to Strain Your Urine (ED), Opioid Safety Activity Restrictions/Additional Instructions: Return for any new or worsening symptoms. Follow-up with your primary care provider within 1 week. You will be contacted to schedule an appointment with the urologist for further evaluation and management. Take the pain medicine as needed for severe pain. Take antibiotic as prescribed. Drink plenty of fluids to keep well-hydrated and to flush your kidneys. 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
[2021-02-11 17:09] VITALS: BP 116/69; PULSE 60; RESP 16; O2SAT 98
[2021-02-11] MEDS: ciprofloxacin 400 MG/200 ML PREMIX 200 MG IV (18:10)
[2021-02-11 19:30] VITALS: BP 117/82; PULSE 74; RESP 16; O2SAT 98
--- NOTE | 2021-02-12 09:18 | PC.SOCIAL ---
Spoke with Amanda at Urology regarding referral from Dr Melendrez for right kidney stone. She took down information and will call patient.
--- NOTE | 2021-02-12 14:28 | PC.SOCIAL ---
Amanda with urology was notified of referral by Dr Melendrez for right kidney stone. She will call patient. Talked with Zoila at [facility] regarding referral for Right Adnexal cyst. Appointment scheduled for 02/26/2021 check in time of 3:15pm.
--- NOTE | 2021-02-12 15:04 | PC.SOCIAL ---
Unable to reach patient called life partner listed as contact after scheduling appt at Gynecology for right adnexal cyst per . Spoke to Zoila at clinic. did not know how else to reach her but indicates he will take the information and make sure she gets it. He wrote down the date time and number for [facility] and that she estrella see Dr Pineda 02/26/2021 3.:15pm check in time.
--- NOTE | 2021-02-21 15:30 | DCPLANNER ---
Patient had a follow up appointment scheduled for 02.13.[address] Muhammad - patient did attend the appointment.
--- NOTE | 2021-03-15 08:00 | DCPLANNER ---
Patient had a follow up appointment scheduled for 02.26.21 with [facility] - patient did attend appointment.
== END 2021-02-11 19:34 | disposition home or self-care (01) ==
PROVIDERS: Emergency Provider Family Medicine; PCP Family Medicine
DX: N13.2 Hydronephrosis with renal and ureteral calculous obstruction (principal); N13.4 Hydroureter; N28.1 Cyst of kidney, acquired; N30.01 Acute cystitis with hematuria; E78.5 Hyperlipidemia, unspecified; E11.9 Type 2 diabetes mellitus without complications
CPT/HCPCS: 74177; 80053; 81001; 81025; 83690; 85025; 86140; 87086; 96365; 96375; 99284; J0744; J2270; J2405; Q9967

== ENCOUNTER 2021-02-13 11:51 | Outpatient (CLI) | payer OTHER, SELFPAY ==
--- NOTE | 2021-02-13 12:00 | XRR_ITS ---
PROCEDURE INFORMATION: Exam: XR Abdomen Exam date and time: 02/13/2021 12:00 PM Age: 35 years old Clinical indication: Condition or disease; Kidney or ureter condition; Calculus (stone) in kidney; Prior surgery; Surgery type: Gb; Patient HX: Follow up kidney stones in RT kidney; Came in through er Sunday 02/11 and found stones; Additional info: Stones, daphnie sarabia 02/13/21 @ 12:00 pm appt to follow TECHNIQUE: Imaging protocol: XR of the abdomen. Views: Frontal supine view of the abdomen. 1 View. COMPARISON: CT abdomen pelvis w con* [id number] 02/11/2021 4:33 PM FINDINGS: Gastrointestinal tract: Normal. No bowel dilation. Organs: Bilateral tubal ligatures are present. Clips are present from cholecystectomy. Bones/joints: Unremarkable. XR/XR KUB [id number] IMPRESSION: No significant abnormalities are seen in the abdomen.
== END 2021-02-13 11:52 | disposition home or self-care (01) ==
LOC: RAD 11:53
PROVIDERS: PCP Family Medicine; Visit Provider Urology
DX: N20.1 Calculus of ureter (principal)
CPT/HCPCS: 74018; 81003

== ENCOUNTER 2021-02-21 14:46 | Outpatient (CLI) | payer OTHER, SELFPAY ==
--- NOTE | 2021-02-21 15:00 | XR_ITS ---
WS: [id number] KUB, AP view, 02/21/2021 Clinical Data: URETERAL CALCULUS Comparison: KUB, 02/13/2021. Findings: No abnormal intraabdominal masses or calcifications are seen. There is no dilatated small bowel or ev idence of obstruction. There are clips in the right upper quadrant from a cholecystectomy. XR/XR KUB [id number] Impression: Negative KUB.
== END 2021-02-21 14:47 | disposition home or self-care (01) ==
LOC: RAD 14:49
PROVIDERS: PCP Family Medicine; Visit Provider Urology
DX: N20.1 Calculus of ureter (principal)
CPT/HCPCS: 74018

== ENCOUNTER 2021-03-21 14:51 | Outpatient (CLI) | payer OTHER, SELFPAY ==
--- NOTE | 2021-03-21 15:00 | XR_ITS ---
WS: [id number] KUB, AP view, 03/21/2021 Clinical Data: RENAL COLIC Comparison: KUB, 02/21/2021. Findings: No abnormal intraabdominal masses or calcifications are seen. There is no dilatated small bowel or ev idence of obstruction. There are clips in the right upper quadrant from a cholecystectomy. XR/XR KUB [id number] Impression: Negative KUB.
== END 2021-03-21 14:52 | disposition home or self-care (01) ==
LOC: RAD 14:54
PROVIDERS: PCP Family Medicine; Visit Provider Urology
DX: N23 Unspecified renal colic (principal)
CPT/HCPCS: 74018; 81003

== ENCOUNTER 2021-03-28 13:45 | Outpatient (CLI) | payer OTHER, SELFPAY ==
--- NOTE | 2021-03-28 14:00 | CT_ITS ---
WS: [id number] CT ABDOMEN PELVIS TECHNIQUE: Noncontrast CT of the abdomen and pelvis with coronal and sagittal reformatted images. CLINICAL INFORMATION: right distal ureteral calculus COMPARISON: None. DLP: 1712.[address] scans at [facility] use at least one of these dose optimization techniques: automat ed exposure control; mA and/or kV adjustment per patient size (includes targeted exams where dose is matched to clinical indication); or iterative reconstruction. FINDINGS: Previously described distal right UVJ calculus is no longer visualized. No obstructing renal or urete ral calculi today. No hydronephrosis. A few tiny nonobstructing left calyceal tip calculi. Adrenal gl ands are normal. Noncontrast liver is normal. Cholecystectomy clips. Normal spleen. Noncontrast pancreas is normal. Ad renal glands are normal. Normal GE junction. Right lower lobe nodular opacity measuring 6 mm. Additio nal hazy irregular opacity right lower lobe measuring 6 mm. These are stable since February 11, 2021 Normal caliber abdominal aorta. No abdominal or pelvic lymphadenopathy. No inguinal lymphadenopathy. Left ovarian cyst measuring 2.[address]/CT kidney stone [id number] IMPRESSION: 1. Previously described obstructing calculus distal right ureter on the prior CT is no longer visualized. 2. A few tiny nonobstructing left calyceal tip calculi. 3. Left ovarian cyst measuring 2.8 cm. 4. Prior tubal ligation. 5. Cholecystectomy. 6. Noncalcified 6 mm nodules right lower lobe. Recommend [address] foll ow-up. 7. No other significant changes from previous.
== END 2021-03-28 13:46 | disposition home or self-care (01) ==
LOC: RAD 13:48
PROVIDERS: PCP Family Medicine; Visit Provider Urology
DX: N20.1 Calculus of ureter (principal); R91.8 Other nonspecific abnormal finding of lung field; Z90.49 Acquired absence of other specified parts of digestive tract; N83.202 Unspecified ovarian cyst, left side
CPT/HCPCS: 74176; 81003

== ENCOUNTER → 2021-04-30 09:41 | Outpatient (BNVA) | payer OTHER, SELFPAY | PROVIDERS: PCP Family Medicine; Visit Provider Family Medicine | DX: E11.9 Type 2 diabetes mellitus without complications (principal); E78.5 Hyperlipidemia, unspecified | CPT/HCPCS: 80053; 80061; 82043; 83036 ==

== ENCOUNTER → 2021-08-14 12:07 | Outpatient (BNVA) | payer OTHER, SELFPAY | PROVIDERS: PCP Family Medicine; Visit Provider Nurse Practitioner Family | DX: Z20.822 Contact with and (suspected) exposure to COVID-19 (principal) | CPT/HCPCS: 87635 ==

== ENCOUNTER 2021-08-15 15:57 | Emergency (ER) | payer OTHER, SELFPAY ==
[2021-08-15 16:30] VITALS: BP 123/76; PULSE 97; RESP 20; TEMP 37.3; O2SAT 96; BMI 45.8
--- NOTE | 2021-08-15 16:34 | XRR_ITS ---
PROCEDURE INFORMATION: Exam: XR Chest Exam date and time: 08/15/2021 4:34 PM Age: 35 years old Clinical indication: Cough; Chest wall pain; Additional info: Cough, chest pain TECHNIQUE: Imaging protocol: XR of the chest. Views: 1 view. COMPARISON: CR XR chest 1V portable [id number] 09/17/2019 6:58 AM FINDINGS: Lungs: No consolidation. Pleural spaces: No pleural effusion. No pneumothorax. Heart/Mediastinum: No cardiomegaly. Bones/joints: Unremarkable. XR/XR chest 1V portable [id number] IMPRESSION: 1. No acute abnormality demonstrated. 2. There is no interval change from the prior examination.
--- NOTE | 2021-08-15 19:03 | ECG_ITS ---
[facility] Test Date: 2021-08-15 Pat Name: Nandini Brown Department: Room: Gender: Female [employer] Work[employer]: : 1985 Requested By: Ame Glover Order Number: [id number] Paco MD: Debbie Daniels M.D. Measurements Intervals Richardson Rate: 101 P: 57 DE: 146 QRS: 64 QRSD: 84 T: 7 QT: 315 QTc: 409 Interpretive Statements SINUS TACHYCARDIA NONSPECIFIC T-WAVE ABNORMALITY ABNORMAL RHYTHM ECG No previous ECG available for comparison Electronically Signed On 08-15-2021 20:47:24 CHILD CARE AIDE by Debbie Daniels M.D. [id number]
--- NOTE | 2021-08-15 19:04 | W.ED.SOB ---
HPI - SOB/Dyspnea General: Chief Complaint: Shortness of Breath/Dyspnea Stated Complaint: COUGH/CHEST PAIN Time Seen by Provider: 08/15/21 18:47 Source: patient Mode of arrival: ambulatory Limitations: no limitations History of Present Illness: HPI Narrative: 35-year-old female states that she been having cough congestion over the last day. 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 States that her cough is worsening like some of her cough she denies any dyspnea is not hypoxic here she states she started having some burning chest pain with her cough. Afebrile here. Associated symptoms: Deny abdominal pain, chest pain, fever(s), nausea or vomiting Review of Systems Const: Denies: fever(s), chills, body aches or change in appetite Eyes: Denies: blurry vision or eye discomfort ENMT: Denies: throat pain or dental pain Card: Denies: chest pain Resp: Reports: dyspnea and non-productive cough GI: Denies: abdominal pain, nausea, vomiting or diarrhea : Denies: dysuria Musc: Denies: neck pain or back pain Skin/Breast: Denies: rash Neuro: Denies: headache(s) Psych: Denies: depression Anthony/Lymph: Denies: easy bruising All/Imm: Denies: urticaria PFSH ED PFSH: Medical History Dyslipidemia Female hirsutism Hydroureter, right Seasonal allergies Type 2 diabetes mellitus, without long-term current use of insulin Surgical History H/O tubal ligation History of cholecystectomy History of tympanostomy tube placement Family History Father , at age 57 Hyperlipidemia Grandmother Diabetes paternal Heart disease maternal Mother Hypertension Family/Other Stroke maternal aunt Social History Smoking and tobacco status: current every day smoker cigarettes [ Other cigarette details: 1-2 cigarettes per day ] Alcohol intake: never Marital status: Single Current occupational status: employed History of recent travel: No Female Reproductive History: Date of last menstrual period: 09/16/19 Physical Exam Const: COMMON NORMALS: no acute distress, patient oriented x3 and healthy appearing HENMT: COMMON NORMALS: normocephalic and atraumatic HEAD & SCALP: normocephalic and atraumatic Eye: COMMON NORMALS: Equal, round and reactive pupils present and EOMs intact bilaterally PUPIL: Yes Equal, round and reactive pupils present Neck/C-Spine: COMMON NORMALS: full ROM and supple Chest: COMMONS NORMALS: normal inspection of the chest and normal palpation of entire chest wall Resp: COMMON NORMALS: normal respiratory effort, No retractions, No use of accessory muscles and clear to auscultation bilaterally AUSCULTATION: clear to auscultation bilaterally Cardio: COMMON NORMALS: regular rate, regular rhythm and No murmurs present (Cardio) RATE: regular rate RHYTHM: regular rhythm GI: COMMON NORMALS: Normal to inspection, nondistended, normoactive bowel sounds present, Soft to palpation, non-tender and no masses PALPATION: Yes Soft to palpation Extremity: COMMON NORMALS: normal to inspection and full ROM Neuro: COMMON NORMALS: patient oriented x3, moves all extremities and no focal motor deficits Psych: COMMON NORMALS: mental status grossly normal, Normal thought process present and cooperative THOUGHT PROCESS: Normal thought process present Skin: COMMON NORMALS: no rashes or lesions noted and no wounds GENERAL SKIN EXAM: no rashes or lesions noted Course Vital Signs: Vital signs: Vital Signs Temperature 99.1 F 08/15/21 16:30 Pulse Rate 97 08/15/21 16:30 Respiratory Rate 20 H 08/15/21 16:30 Blood Pressure 123/76 08/15/21 16:30 Pulse Oximetry 96 08/15/21 16:30 MDM - SOB/Dyspnea MDM Narrative: Medical decision making narrative: Patient presents with cough congestion likely an upper respiratory infection. X-ray here shows no pneumonia 7 pain with her cough is likely from her cough EKG is normal no signs of acute coronary syndrome or pulmonary embolism. Patient given albuterol treatment here will discharge with inhaler along with Tessalon Marlene. She is still pending her Covid PCR I informed her she is to quarantine until that result we will write her a work note she is stable here with no acute distress no hypoxia. Imaging Data^: CXR: Attestation: I personally reviewed and interpreted this imaging study as follows: Radiologist's impression: [address] [place] [place] [address] XRay Report Signed Patient: Nandini Brown Unit #: [id number] : 1985 Age/Sex: 35 / F ADM Date: 08/15/21 Loc: ER Room/Bed: Attending Dr: Ordering Provider/Ordering MD: Jocelyn Bonner Date of Service: 08/15/21 Procedure(s): XR chest 1V portable [id number] Accession Number(s): [id number] Report Number: [id number] PROCEDURE INFORMATION: Exam: XR Chest Exam date and time: 08/15/2021 4:34 PM Age: 35 years old Clinical indication: Cough; Chest wall pain; Additional info: Cough, chest pain TECHNIQUE: Imaging protocol: XR of the chest. Views: 1 view. COMPARISON: CR XR chest 1V portable [id number] 09/17/2019 6:58 AM FINDINGS: Lungs: No consolidation. Pleural spaces: No pleural effusion. No pneumothorax. Heart/Mediastinum: No cardiomegaly. Bones/joints: Unremarkable. XR/XR chest 1V portable [id number] IMPRESSION: 1. No acute abnormality demonstrated. 2. There is no interval change from the prior examination. Dictated By: Jacoby Moran MD Signed By: Jacoby Moran MD Signed Date/Time: 08/15/21 1727 DD/ 1634 EKG Data^: EKG 1: Attestation: I personally reviewed and interpreted this EKG as follows: EKG Interpretation Date: 08/15/21 EKG interpretation time: 19:11 Interpretation: sinus tach hr [address] or t wave abnormalities qrs 84 qtc 373 Discharge Plan Discharge Patient Disposition: Home Clinical Impression: Upper respiratory infection Qualifiers: URI type: unspecified URI Qualified Code(s): J06.9 - Acute upper respiratory infection, unspecified Condition: Stable Prescriptions: New albuterol sulfate 90 mcg/actuation HFA aerosol inhaler 2 inh INHALATION Q6H PRN (Reason: shortness of breath or wheezing) Qty: 8 RF: 0 Tessalon Perles 100 mg capsule 100 mg PO TID PRN (Reason: cough) Qty: 14 RF: 0 No Action fexofenadine [Lakisha Allergy] 180 mg tablet 180 mg PO DAILY RF: 0 spironolactone 25 mg tablet 25 mg PO BID Qty: 180 RF: 1 atorvastatin 10 mg tablet 10 mg PO DAILY Qty: 90 RF: 1 Januvia 100 mg tablet 100 mg PO DAILY 30 Days Qty: 90 RF: 1 Discharge Orders: Discharge ED (Routine); Ordered 08/15/21 Ordered By: Ame Glover Referrals: Zoila Fox DO [Primary Care Provider] - 1-3 days Discharge Diet: Advance as tolerated Discharge Activity: Resume usual activity Patient Instructions: Upper Respiratory Infection (ED) Stand Alone Forms: Work/School Release Coding Level of Care Code 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
[2021-08-15] MEDS: albuterol 8 gm MDI 2 PUFF INHALATION (19:32)
[2021-08-15 19:36] VITALS: PULSE 109; RESP 18; O2SAT 92
[2021-08-15] MEDS: benzonatate 100 mg Capsule PO (19:43)
[2021-08-15] MEDS: dexamethasone 10 mg/mL INJ IM (19:43)
[2021-08-15 20:01] VITALS: BP 138/84; PULSE 101; RESP 22; O2SAT 94
== END 2021-08-15 19:45 | disposition home or self-care (01) ==
PROVIDERS: Emergency Provider Emergency Medicine; PCP Family Medicine
DX: J06.9 Acute upper respiratory infection, unspecified (principal); E78.5 Hyperlipidemia, unspecified; E11.9 Type 2 diabetes mellitus without complications; F17.210 Nicotine dependence, cigarettes, uncomplicated
CPT/HCPCS: 71045; 93005; 94640; 96372; 99283; J1100; J3535

== ENCOUNTER → 2021-10-26 13:15 | Outpatient (BNVA) | payer BC, SELFPAY | PROVIDERS: PCP Family Medicine; Visit Provider Family Medicine | DX: E11.9 Type 2 diabetes mellitus without complications (principal); L68.0 Hirsutism; E78.5 Hyperlipidemia, unspecified; F17.219 Nicotine dependence, cigarettes, with unspecified nicotine-induced disorders | CPT/HCPCS: 80053 ==

== ENCOUNTER → 2022-04-26 09:11 | Outpatient (BNVA) | payer BC, SELFPAY | PROVIDERS: PCP Family Medicine; Visit Provider Family Medicine | DX: E11.9 Type 2 diabetes mellitus without complications (principal); E78.5 Hyperlipidemia, unspecified; L68.0 Hirsutism; F17.219 Nicotine dependence, cigarettes, with unspecified nicotine-induced disorders | CPT/HCPCS: 80053; 80061; 82043; 83036; 85025 ==

== ENCOUNTER → 2022-08-06 11:24 | Outpatient (BNVA) | payer BC, SELFPAY | PROVIDERS: PCP Family Medicine; Visit Provider Family Medicine | DX: E11.9 Type 2 diabetes mellitus without complications (principal); R10.13 Epigastric pain | CPT/HCPCS: 80053; 83036 ==

== ENCOUNTER → 2022-08-07 08:22 | Outpatient (BNVA) | payer BC, SELFPAY | PROVIDERS: PCP Family Medicine; Visit Provider Family Medicine | DX: E11.9 Type 2 diabetes mellitus without complications (principal); R10.13 Epigastric pain | CPT/HCPCS: 87338 ==

== ENCOUNTER 2022-10-07 06:40 | Outpatient (CLI) | payer BC, SELFPAY ==
--- NOTE | 2022-10-07 07:00 | US_ITS ---
WS: [id number] RIGHT UPPER QUADRANT ULTRASOUND HISTORY: elevated lft's COMPARISON: 05/25/2014 Liver: 18.9 cm in length. Liver is enlarged and very heterogeneous and dense with limited penetration . The entire liver is not imaged very well. No mass identified. No bile duct dilatation is identified . Portal Vein: Poorly visualized portal vein and waveform. Gallbladder: Status post cholecystectomy. CBD: Not visualized. Pancreas: Poorly visualized. Body is echogenic. Right kidney: 10.8 cm in length. Normal size and echogenicity. No hydronephrosis or mass. Aorta and IVC: Unremarkable abdominal aorta and IVC. No ascites. US/US liver [id number] IMPRESSION: 1. Technically very difficult evaluation of the RIGHT upper quadrant. 2. Prior cholecystectomy. 3. Moderate hepatomegaly with severe hepatic steatosis. Findings have progress ed since 2013. 4. Poorly visualized portal vein and common bile duct.
== END 2022-10-07 06:41 | disposition home or self-care (01) ==
PROVIDERS: PCP Family Medicine; Visit Provider Family Medicine
DX: R94.5 Abnormal results of liver function studies (principal); Z90.49 Acquired absence of other specified parts of digestive tract; R16.0 Hepatomegaly, not elsewhere classified; K76.0 Fatty (change of) liver, not elsewhere classified
CPT/HCPCS: 76705

== ENCOUNTER → 2022-10-31 08:48 | Outpatient (BNVA) | payer BC, SELFPAY | PROVIDERS: PCP Family Medicine; Visit Provider Family Medicine | DX: E11.9 Type 2 diabetes mellitus without complications (principal); K21.9 Gastro-esophageal reflux disease without esophagitis; E78.5 Hyperlipidemia, unspecified | CPT/HCPCS: 80053; 83036 ==

== ENCOUNTER → 2023-02-03 10:51 | Outpatient (BNVA) | payer BC, SELFPAY | PROVIDERS: PCP Family Medicine; Visit Provider Family Medicine | DX: R10.9 Unspecified abdominal pain (principal); E11.9 Type 2 diabetes mellitus without complications; F17.219 Nicotine dependence, cigarettes, with unspecified nicotine-induced disorders; Z79.4 Long term (current) use of insulin | CPT/HCPCS: 80053; 81000; 83036; 87086 ==

== ENCOUNTER → 2023-05-02 13:06 | Outpatient (BNVA) | payer BC, SELFPAY | PROVIDERS: PCP Family Medicine; Visit Provider Nurse Practitioner Family | DX: J02.9 Acute pharyngitis, unspecified (principal); J30.2 Other seasonal allergic rhinitis | CPT/HCPCS: 87880 ==

== ENCOUNTER → 2023-05-05 11:42 | Outpatient (BNVA) | payer BC, SELFPAY | PROVIDERS: PCP Family Medicine; Visit Provider Family Medicine | DX: E11.9 Type 2 diabetes mellitus without complications (principal); Z79.4 Long term (current) use of insulin; E78.5 Hyperlipidemia, unspecified; J01.90 Acute sinusitis, unspecified; B96.89 Other specified bacterial agents as the cause of diseases classified elsewhere | CPT/HCPCS: 80053; 80061; 82043; 83036; 85025 ==

== ENCOUNTER 2023-08-03 11:58 | Emergency (ER) | payer BC, SELFPAY ==
--- NOTE | 2023-08-03 11:59 | XRR_ITS ---
PROCEDURE INFORMATION: Exam: XR Chest Exam date and time: 08/03/2023 12:51 PM Age: 37 years old Clinical indication: Cough and shortness of breath; Patient HX: Cough; Chest congestion; Weakness; Ex smoker x 20yrs-recently quit TECHNIQUE: Imaging protocol: Radiologic exam of the chest. Views: 2 views. COMPARISON: CR XR chest 1V portable [id number] 08/15/2021 4:42 PM FINDINGS: Lungs: Bilateral lung lobes clear. Pleural spaces: No pneumothorax, or pleural effusion. Heart/Mediastinum: Cardiac silhouette is within normal limits. Bones/joints: No acute fracture. XR/XR chest 2V* [id number] IMPRESSION: No active cardiopulmonary disease.
[2023-08-03 12:06] VITALS: BP 136/90; PULSE 104; RESP 17; TEMP 36.7; O2SAT 96
--- NOTE | 2023-08-03 12:07 | W.ED.GENADLT ---
HPI - General Adult General: Chief complaint: Upper Respiratory Infection Stated complaint: cough, congested, head pain Time Seen by Provider: 08/03/23 12:01 History of Present Illness: 37-year-old female presents emergency department with complaints of increased sore throat nonproductive cough and congestion. She states she was seen by her PCP on 08/02/2023 for similar complaints in addition to generalized body aches and a runny nose. She presents today to the emergency department with continued complaints of cough and generalized myalgias. Associated symptoms: Reports malaise Review of Systems General: Reports: 10 or more systems reviewed and unremarkable except in HPI and below Const: Reports: chills, body aches, fatigue and malaise Resp: Reports: non-productive cough PFSH ED PFSH: Medical History Urolithiasis Seasonal allergies Type 2 diabetes mellitus, without long-term current use of insulin Female hirsutism Dyslipidemia Surgical History H/O plastic surgery 2005- , right mandible fracture repair, History of cholecystectomy H/O tubal ligation History of tympanostomy tube placement Family History Father , at age 57 Hyperlipidemia Grandmother Diabetes paternal Heart disease maternal Mother Hypertension Family/Other Stroke maternal aunt Social History Smoking and tobacco/nicotine status: current every day tobacco/nicotine user cigarettes [ Other cigarette details: 1-2 cigarettes per day ] Alcohol intake: never Substance/Drug Use: never Marital status: Single Current occupational status: employed Physical Exam Narrative: EXAM NARRATIVE: Constitutional: the patient appears well nourished and of normal development. Vital signs as documented. No acute distress at present. Alert and oriented-to person, place, time and situation. Head, eyes, ears, nose, mouth, throat: Normocephalic, atraumatic. Pupils-equal, round, reactive to light. No scleral icterus. Normal-appearing external ears. Normal appearing nasal turbinates, no drainage. No obvious oral lesions, posterior oropharynx without erythema or exudates. Neck: Supple, trachea is midline, no lymphadenopathy, no jugular venous distension, thyromegaly, or carotid bruits. Carotid upstrokes are brisk bilaterally. Lungs: clear to auscultation to all lung barnhart. Symmetrical rise and fall of chest, no obvious signs of increased work of breathing at present. Cardiac: Regular rate and rhythm, positive S1, S2. No murmurs, rubs or gallops that I can appreciate Abdomen: Soft, non-tender to palpation, normal active bowel sounds to all quadrants. No palpable masses, no organomegaly and abdominal bruits. Extremities: 2+ pulses in the upper extremities that are equal bilaterally, 2+ pulses in the lower extremities that are equal bilaterally. Non-edematous. Moves all extremities well, sensation to all extremities are noted. Skin: Warm, dry, intact. Course Vital Signs: Vital signs: Vital Signs Temperature 98.1 F 08/03/23 12:06 Pulse Rate 107 H 08/03/23 14:40 Respiratory Rate 20 H 08/03/23 14:40 Blood Pressure 138/96 08/03/23 14:40 Pulse Oximetry 98 08/03/23 14:40 Oxygen Delivery Me thod Room Air 08/03/23 12:06 MDM - General Adult Medical Decision Making Physical exam completed and documented, I reviewed the patient's previous medical record and her recent office visit note. I will obtain a chest x-ray as well as screen for influenza a and B and COVID-19. Differential Diagnosis Pneumonia, viral illness, Medical Records I reviewed the patient's medical records. Lab Data I reviewed the patient's lab results. Radiology Impressions Chest X-Ray 08/03/23 11:59 IMPRESSION: No active cardiopulmonary disease. Laboratory Results Influenza Type A Ag negative (Negative) 08/03/23 12:54 Influenza Type B Ag negative (Negative) 08/03/23 12:54 SARS-CoV-2 Ag (Rapid) positive (Negative) H 08/03/23 12:54 All radiology interpretation(s) finalized by discharge Discharge Plan Discharge Patient Disposition: Home Clinical Impression: COVID-19 Condition: Stable Prescriptions: New albuterol sulfate 90 mcg/actuation HFA aerosol inhaler 2 inh inhalation Q6H PRN (Reason: shortness of breath or wheezing) Qty: 8.5 0RF benzonatate 200 mg capsule 200 mg PO TID Qty: 30 0RF No Action ibuprofen 600 mg tablet 600 mg PO Q8H PRN (Reason: pain) Qty: 60 0RF fluticasone propionate [Flonase Allergy Relief] 50 mcg/actuation spray,suspension 2 spray intranasal DAILY Qty: 16 0RF Rx Instructions: administer into each nostril (DME) Pen Roslyn to be used with insulin therapy See Rx Instructions .Route .MEDSUPPLY Qty: 100 0RF Rx Instructions: As directed Levemir FlexPen 100 unit/mL (3 mL) insulin pen 40 unit SUBCUT DAILY Qty: 15 3RF atorvastatin 10 mg tablet 10 mg PO DAILY Qty: 90 1RF pantoprazole [Protonix] 40 mg tablet,delayed release (DR/EC) 40 mg PO QAM Qty: 90 1RF spironolactone 25 mg tablet 25 mg PO BID Qty: 180 1RF tirzepatide 7.5 mg/0.5 mL pen injector 7.5 mg SUBCUT .weekly Qty: 2 1RF Rx Instructions: Please disregard prior Rx Discharge Orders: Discharge ED (Routine); Ordered 08/03/23 Ordered By: Luis M Vela Referrals: Zoila Fox DO [Primary Care Provider] - Discharge Diet: Advance as tolerated Discharge Activity: Resume usual activity Patient Instructions: Opioid Safety, Pain Management Activity Restrictions/Additional Instructions: Activity Restrictions/Additional Instructions: Thank you for choosing [facility] for your healthcare needs today. Please realize that you were seen in the Emergency Department and that we are providing you with an emergency medical screening exam and this may not be a complete and all inclusive of all the testing and or medical work-up that you may need to determine your ailment or severity of your illness. It is very important that you follow-up as instructed with your Primary care provider or Specialist for additional evaluation and to discuss your medical treatment plan. You may return to the Emergency Department should you have concerns or if your condition changes or worsens in any way. 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
[2023-08-03 13:35] LABS: Influenza A by IFA negative (Negative); Influenza B by IFA negative (Negative)
[2023-08-03 13:38] LABS: SARS Covid-2 Antigen positive (Negative)
[2023-08-03 14:40] VITALS: BP 138/96; PULSE 107; RESP 20; O2SAT 98
== END 2023-08-03 14:46 | disposition home or self-care (01) ==
PROVIDERS: Emergency Medicine; Emergency Provider Internal Medicine; PCP Family Medicine
DX: U07.1 COVID-19 (principal); Z79.4 Long term (current) use of insulin; F17.210 Nicotine dependence, cigarettes, uncomplicated; E11.9 Type 2 diabetes mellitus without complications; E78.5 Hyperlipidemia, unspecified
CPT/HCPCS: 71046; 87426; 87804; 99284

== ENCOUNTER → 2023-09-09 11:42 | Outpatient (BNVA) | payer BC, SELFPAY | PROVIDERS: PCP Family Medicine; Visit Provider Family Medicine | DX: E11.9 Type 2 diabetes mellitus without complications (principal); Z79.4 Long term (current) use of insulin | CPT/HCPCS: 80053; 83036 ==

== ENCOUNTER 2023-09-30 15:34 | Emergency (ER) | payer BC, SELFPAY ==
[2023-09-30 15:40] VITALS: BP 136/84; PULSE 86; RESP 16; TEMP 36.6; O2SAT 96; BMI 43.5
[2023-09-30 16:20] LABS: Basophils % 0.4 %; Eosinophils # 0.1 10^3/uL (0.0-0.8); Eosinophils % 0.7 %; Hematocrit 43.4 % (36-47); Lymphocytes # 3.1 10^3/uL (0.8-4.8); Lymphocytes % 29.3 %; Mean Corpuscular HGB Conc 33.2 g/dL (30-55); Mean Corpuscular Hemoglobin 29.3 pg (27-33); Mean Corpuscular Volume 88.4 fl (85-98); Mean Platelet Volume 8.8 fL (7.4-10.4); Monocytes # 0.5 10^3/uL (0.2-0.9); Monocytes % 4.5 %; Neutrophils # 6.92 10^3/uL (1.8-7.7); Neutrophils % 64.8 %; Nucleated Red Blood Cells % 0 %; Platelet Count 369 10^3/cmm (157-399); Red Blood Count 4.91 10^6/uL (3.85-5.65); Red Cell Distribution Width 12.6 % (12.1-15.1); White Blood Count 10.67 10^3/uL (3.29-11.43)
[2023-09-30 16:43] LABS: HCG, Serum Qual Negative (Negative)
[2023-09-30 16:45] LABS: Alanine Aminotransferase 29 U/L (0-33); Albumin Level 4.1 g/dL (3.5-5.2); Alkaline Phosphatase 126 U/L (35-105); Anion Gap 14.7 (5-19); Aspartate Amino Transferase 22 U/L (0-32); Blood Urea Nitrogen 11 mg/dL (6-20); Calcium 8.8 mg/dL (8.5-10.5); Carbon Dioxide 25 mmol/L (22-29); Chloride 98 mmol/L (98-107); Glomerular Filtration Rate 70.1 mL/min (90-130); Glucose 92 mg/dL (65-115); Lipase 30 U/L (13-60); Osmolality Calculated 277 mOsm/kg (285-295); Potassium 3.7 mmol/L (3.5-5.1); Sodium 134 mmol/L (136-145); Total Bilirubin 0.3 mg/dL (0.15-1.2); Total Protein 8.1 g/dL (6.6-8.7)
--- NOTE | 2023-09-30 16:47 | CTR_ITS ---
PROCEDURE INFORMATION: Exam: CT Abdomen And Pelvis With Contrast Exam date and time: 09/30/2023 6:05 PM Age: 37 years old Clinical indication: Abdominal pain; Localized; Right lower quadrant (rlq); Prior surgery; Surgery date: 6+ months; Surgery type: Tubal, steven; Additional info: Rlq pain TECHNIQUE: Imaging protocol: Computed tomography of the abdomen and pelvis with contrast. Radiation optimization: All CT scans at this facility use at least one of these dose optimization techniques: automated exposure control; mA and/or kV adjustment per patient size (includes targeted exams where dose is matched to clinical indication); or iterative reconstruction. Contrast material: OMNI 350; Contrast volume: 100 ml; Contrast route: INTRAVENOUS (IV); COMPARISON: CT kidney stone [id number] 03/28/2021 2:00 PM RADIATION DOSE METRICS: Total DLP (mGy-cm): 942 FINDINGS: Liver: Normal. No mass. Gallbladder and bile ducts: The gallbladder is absent. Pancreas: Normal. No ductal dilation. Spleen: Normal. No splenomegaly. Adrenal glands: Normal. No mass. Kidneys and ureters: Normal. No hydronephrosis. Stomach and bowel: Unremarkable. No obstruction. No mucosal thickening. Appendix: No evidence of appendicitis. Intraperitoneal space: Unremarkable. No free air. No significant fluid collection. Vasculature: Unremarkable. No abdominal aortic aneurysm. Lymph nodes: Unremarkable. No enlarged lymph nodes. Urinary bladder: Unremarkable as visualized. Reproductive: Unremarkable as visualized. Bones/joints: Unremarkable. No acute fracture. Soft tissues: Unremarkable. CT/CT abdomen pelvis w con* [id number] IMPRESSION: 1. No bowel obstruction or inflammatory process associated with the bowel. 2. No free air or significant free fluid in the abdomen or pelvis. 3. The appendix images normally.
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
[2023-09-30] MEDS: iohexol 350 mg/mL 500 mL Btl (per mL) IV (17:29)
[2023-09-30] MEDS: sodium chloride 0.9% 1,000 ML 999 ML IV (17:56)
[2023-09-30] MEDS: ondansetron 2 mg/ML SDV 2 mL 4 MG IVP (17:59)
[2023-09-30] MEDS: ketorolac 30 mg/mL INJ IVP (18:39)
[2023-09-30 18:58] LABS: Add Urine Microscopic? NO; Charge for UA Resulting for Rev
[2023-09-30 19:10] LABS: Bilirubin Urine Neg (Negative); Blood Urine Neg (Negative); Glucose Urine UA Norm (Normal); Ketones Urine 1+ (Negative); Leukocyte Esterase Urine Negative (Negative); Nitrate Urine Negative (Negative); Protein Urine Neg (Negative); Urine Appearance Clear (CLEAR); Urine Color Light yellow (Yellow); Urobilinogen Urine Norm (Negative); pH Urine 6 (5-7)
== END 2023-09-30 19:31 | disposition home or self-care (01) ==
PROVIDERS: Emergency Provider Emergency Medicine; PCP Family Medicine
DX: R10.31 Right lower quadrant pain (principal); E11.9 Type 2 diabetes mellitus without complications; E78.5 Hyperlipidemia, unspecified; F17.210 Nicotine dependence, cigarettes, uncomplicated
CPT/HCPCS: 36415; 74177; 80053; 81000; 81003; 83690; 84703; 85025; 87086; 96374; 96375; 99285; J1885; J2405; J7030; Q9967

== ENCOUNTER → 2023-12-09 11:52 | Outpatient (BNVA) | payer BC, SELFPAY | PROVIDERS: PCP Family Medicine; Visit Provider Family Medicine | DX: E11.9 Type 2 diabetes mellitus without complications (principal); Z79.4 Long term (current) use of insulin | CPT/HCPCS: 80053; 83036 ==

== ENCOUNTER → 2024-04-28 11:17 | Outpatient (BNVA) | payer BC, SELFPAY | DX: Z79.4 Long term (current) use of insulin (principal); E78.5 Hyperlipidemia, unspecified; E11.9 Type 2 diabetes mellitus without complications | CPT/HCPCS: 80053; 80061; 83036 ==

== ENCOUNTER → 2024-07-28 10:12 | Outpatient (BNVA) | payer BC, SELFPAY | DX: E11.9 Type 2 diabetes mellitus without complications (principal); Z79.4 Long term (current) use of insulin | CPT/HCPCS: 80053; 83036 ==

== ENCOUNTER → 2024-10-28 10:00 | Outpatient (BNVA) | payer BC, SELFPAY | PROVIDERS: PCP Family Medicine; Visit Provider Family Medicine | DX: E11.9 Type 2 diabetes mellitus without complications (principal); Z79.4 Long term (current) use of insulin | CPT/HCPCS: 80053; 83036; 85025 ==

== ENCOUNTER → 2025-01-27 09:13 | Outpatient (BNVA) | payer BC, SELFPAY | PROVIDERS: PCP Family Medicine; Visit Provider Family Medicine | DX: E11.9 Type 2 diabetes mellitus without complications (principal); Z79.4 Long term (current) use of insulin | CPT/HCPCS: 80053; 83036 ==

== ENCOUNTER → 2025-03-08 09:54 | Outpatient (BNVA) | payer BC, SELFPAY | PROVIDERS: PCP Family Medicine; Visit Provider Family Medicine | DX: Z01.419 Encounter for gynecological examination (general) (routine) without abnormal findings (principal) | CPT/HCPCS: 87624 ==

== ENCOUNTER 2025-03-10 07:45 | Outpatient (CLI) | payer BC, SELFPAY ==
--- NOTE | 2025-03-10 08:00 | MM_ITS ---
WS: [id number] SCREENING DIGITAL BREAST TOMOSYNTHESIS MAMMOGRAM WITH CAD HISTORY: screening COMPARISON: None available. Bilateral CC and MLO with tomosynthesis and synthetic mammography submitted. Computer aided detection analyzed. Breast composition: The breasts are heterogeneously dense, which may obscure small masses. Focal irregular asymmetry in the upper outer quadrant of the RIGHT breast, posterior depth. Favor this will probably improve with better positioning and better compression. No suspicious grouping of calcifications. MM/MM scr BI tomosynthesis [id number] IMPRESSION: BI-RADS: 0 - Incomplete: Need additional imaging evaluation FOLLOW UP: Need Additional Imaging RIGHT breast: Spot compression views (CC and MLO). True ML. Ultrasound to follo w if abnormality persists.
== END 2025-03-10 07:46 | disposition home or self-care (01) ==
LOC: RAD 07:46
PROVIDERS: PCP Family Medicine; Visit Provider Family Medicine
DX: Z12.31 Encounter for screening mammogram for malignant neoplasm of breast (principal); R92.333 Mammographic heterogeneous density, bilateral breasts; R92.8 Other abnormal and inconclusive findings on diagnostic imaging of breast
CPT/HCPCS: 77063; 77067

== ENCOUNTER 2025-03-28 08:29 | Outpatient (CLI) | payer BC, SELFPAY ==
--- NOTE | 2025-03-28 08:35 | US_ITS ---
WS: [id number] ADDITIONAL VIEWS RIGHT MAMMOGRAM WITH DIGITAL BREAST TOMOSYNTHESIS. RIGHT BREAST ULTRASOUND HISTORY: breast mass COMPARISON: 03/10/2025 RIGHT MAMMOGRAM: Spot compression views and true ML with digital breast tomosynthesis and SM. Breast composition: The breasts are heterogeneously dense, which may obscure small masses. Focal, irregular asymmetry in the upper outer quadrant of the RIGHT breast nearly completely resolves with additional imaging. Mild asymmetry persists only on the RIGHT MLO projection. No distortion. Ultrasound to follow. RIGHT BREAST ULTRASOUND 2-D and color Doppler imaging submitted. No abnormality in the RIGHT upper outer quadrant. Normal soft tissues. No shadowing. US/US breast RT limited* [id number] IMPRESSION: BI-RADS: 2 - Benign FOLLOW UP: 1 Year Follow-up
--- NOTE | 2025-03-28 08:45 | MM_ITS ---
WS: [id number] ADDITIONAL VIEWS RIGHT MAMMOGRAM WITH DIGITAL BREAST TOMOSYNTHESIS. RIGHT BREAST ULTRASOUND HISTORY: breast mass COMPARISON: 03/10/2025 RIGHT MAMMOGRAM: Spot compression views and true ML with digital breast tomosynthesis and SM. Breast composition: The breasts are heterogeneously dense, which may obscure small masses. Focal, irregular asymmetry in the upper outer quadrant of the RIGHT breast nearly completely resolves with additional imaging. Mild asymmetry persists only on the RIGHT MLO projection. No distortion. Ultrasound to follow. RIGHT BREAST ULTRASOUND 2-D and color Doppler imaging submitted. No abnormality in the RIGHT upper outer quadrant. Normal soft tissues. No shadowing. MM/MM diag RT tomosynthesis [id number] IMPRESSION: BI-RADS: 2 - Benign FOLLOW UP: 1 Year Follow-up
== END 2025-03-28 08:30 | disposition home or self-care (01) ==
LOC: RAD 08:30
PROVIDERS: PCP Family Medicine; Visit Provider Family Medicine
DX: N64.89 Other specified disorders of breast (principal); R92.333 Mammographic heterogeneous density, bilateral breasts
CPT/HCPCS: 76642; 77061; G0279

== ENCOUNTER → 2025-04-25 09:06 | Outpatient (BNVA) | payer BC, SELFPAY | PROVIDERS: PCP Family Medicine; Visit Provider Family Medicine | DX: E11.9 Type 2 diabetes mellitus without complications (principal); Z79.4 Long term (current) use of insulin | CPT/HCPCS: 80048; 83036 ==

== ENCOUNTER 2025-07-01 16:08 | Outpatient (CLI) | payer OTHER, BC, SELFPAY ==
--- NOTE | 2025-07-01 17:00 | US_ITS ---
WS: [id number] US transvaginal [id number] HISTORY: AUB COMPARISON: 03/31/2008 Uterus: 7.0 cm x 4.9 cm x 3.9 cm. Normal size anteverted uterus. No fibroid or mass. Mild uterine heterogeneity. No definite fibroid identified. Endometrium: 0.6 cm. Normal endometrium. No mass. Right ovary: Not identified. No RIGHT adnexal mass. Left ovary: 3.7 cm x 2.4 cm x 3.3 cm. Normal size and vascularity, no cystic or solid masses. Dominant LEFT ovarian follicle 2.8 x 2.0 x 1.9 cm. No free fluid in the cul-de-sac. US/US transvaginal [id number] IMPRESSION: 1. Normal endometrium. No mass or increased vascularity. 2. Normal size uterus. Mild myometrial heterogeneity but there is no fibroid i dentified. 3. RIGHT ovary not identified. 4. Normal LEFT ovary.
== END 2025-07-01 16:09 | disposition home or self-care (01) ==
LOC: RAD 16:09
PROVIDERS: PCP Family Medicine; Visit Provider Family Medicine
DX: N93.9 Abnormal uterine and vaginal bleeding, unspecified (principal); Z90.721 Acquired absence of ovaries, unilateral
CPT/HCPCS: 76830